=== PATIENT | female | born 1980 | race Caucasian/White ===

== ENCOUNTER 2019-10-29 05:45 | Day surgery (SDC) | payer BC ==
[2019-10-26 09:44] VITALS: BMI 25.0
[2019-10-26 10:36] LABS: BHCG - Serum Negative (NEGATIVE); Pregs Control Background? CLEAR/WHITE (CLR/WHITE); Pregs Control Bar Appear? YES (CONTROL BAR)
[2019-10-26 10:44] LABS: Hemoglobin 13.2 g/dL (12.0-16.0); Mean Corpuscular HGB CONC 32.6 g/dL (32.0-36.0); Mean Corpuscular Hemoglobin 29.7 pg (27.0-31.0); Mean Platelet Volume 8.4 fL (7.4-10.4); Platelet Count 262 thou/uL (130-400); RBC Distribution Width 12.6 % (11.5-14.5); Red Blood Cell (RBC) Count 4.47 mill/uL (4.20-5.40); White Blood Cell (WBC) Count 5.4 thou/uL (4.8-10.8)
[2019-10-29] MEDS ORDERED: Gabapentin 300 MG CAP ONE (06:16)
[2019-10-29] MEDS ORDERED: Famotidine/PF 20 mg/2ml Vial ONE (06:17)
[2019-10-29] MEDS ORDERED: CeleCOXIB 100 MG CAP ONE (06:17)
[2019-10-29] MEDS ORDERED: Bupivacaine PF 0.5% 30 ML VIAL ONE (06:45)
[2019-10-29] MEDS ORDERED: Lidocaine 1% w/Epinephrine 1:100K 20 ML VIAL ONE (06:45)
[2019-10-29] MEDS ORDERED: Fentanyl 100 MCG/2 ML VIAL ONE ×2 (07:00→10:32)
[2019-10-29] MEDS ORDERED: HYDROmorphone 0.5 MG/0.5 ML SYRINGE ONE ×2 (07:01)
[2019-10-29] MEDS ORDERED: Midazolam HCl 2 mg/2 ml Vial ONE (07:24)
[2019-10-29] MEDS ORDERED: Ropivacaine 0.2% 550 ML 750 ML NERVE BLCK SCH (08:00)
[2019-10-29] MEDS ORDERED: Ropivacaine HCl/PF 750 ML in Premix Bag 1 BAG NERVE BLCK SCH (08:15)
[2019-10-29] MEDS ORDERED: Morphine 2 MG/ML SYRINGE SLOW IVP PRN (09:32)
[2019-10-29] MEDS ORDERED: HYDROcodone/Acetaminophen 5/325 mg Tablet PO PRN ×2 (09:32)
[2019-10-29] MEDS ORDERED: Promethazine HCl 25 MG/ML VIAL SLOW IVP PRN (10:07)
[2019-10-29] MEDS ORDERED: Ondansetron HCl/PF 4 MG/2 ML Vial IVP PRN (10:07)
[2019-10-29] MEDS ORDERED: Promethazine HCl 25 MG/ML VIAL IM PRN (10:07)
--- NOTE | 2019-10-29 10:41 | OP ---
DATE OF PROCEDURE: 10/29/2019 PREOPERATIVE DIAGNOSIS: Dysmenorrhea. POSTOPERATIVE DIAGNOSIS: Dysmenorrhea. PROCEDURES PERFORMED: 1. Robotic-assisted total laparoscopic hysterectomy with bilateral salpingectomy. 2. ON-Q pump placement. ELECTRICAL MAINTENANCE MECHANIC: Enid Harry PA-C. COMPLICATIONS: None. ANESTHESIA: GETA. ESTIMATED BLOOD LOSS: Less than 75 mL. OPERATIVE FINDINGS: 1. Normal-appearing vagina and cervix. Uterus sounds to 8 cm. 2. Normal-appearing uterus, tubes, and ovaries. 3. Surgical site hemostatic. PROCEDURE IN DETAIL: The patient was taken back to the OR with IV fluids running. Once she was in the OR, general anesthesia was obtained. The patient was then placed in low dorsal lithotomy position. The vagina and abdomen were then prepped and draped in normal fashion for gynecologic laparoscopy. Surgeons were gowned and gloved. The procedure began with a draining of the bladder. The bladder drained approximately 700 mL of urine. A Ortiz catheter was left in the bladder, attached to a Evette syringe for bladder manipulation during the case. A speculum was then placed in the vagina. The anterior lip of the cervix was grasped with a tenaculum. A MADELYN-Ynvisible manipulator was assembled with a 4-cm cup, and after sounding the uterus and noting to be 8 cm, an 8 cm tip Jesús manipulator was placed into the uterus and vagina in routine fashion. The surgeon's gloves were then changed and attention was turned to the laparoscopic portion of the procedure. Beginning just above the umbilicus, local anesthesia was injected underneath the skin. A 12-mm skin incision was made with a scalpel. A Veress needle was placed through the skin incision and the abdomen was insufflated without difficulty. Once the abdomen was insufflated, the Veress needle was removed and the 12-mm trocar was placed through the distended abdomen through this incision. The laparoscope was then placed through this port with the above findings noted. The patient was then placed in Trendelenburg position. The remaining 3 ports were placed with the right upper quadrant 11-mm port and a left and right lower quadrant 8-mm port. Once all 4 ports were placed, the robotic arms were docked to the patient's bedside and the instruments were placed under direct visualization into the pelvis. Beginning on the patient's left side, the left fallopian tube was grasped, elevated, and directed away from the pelvic sidewall. It was cauterized and transected using a combination of bipolar and monopolar cautery. The fallopian tube segment was then removed and sent for final pathologic review. The utero-ovarian ligament on the patient's left side was cauterized and transected, allowing the ovary to fall away to the left pelvic sidewall. The round ligament on the patient's left side was then cauterized, transected, and divided into anterior and posterior leaves. The anterior and posterior leaves were dissected down towards the level of the uterine artery. The uterine artery was then cauterized and transected. The anterior leaf of the broad ligament was taken down towards the cervix. The cervicovesical fascia was then dissected, creating a bladder flap across the anterior portion of the cervix and the bladder was dissected away from the planned colpotomy site. In similar fashion, attention was turned to the right side of the pelvis, where the right fallopian tube was grasped and elevated away from the pelvic sidewall, cauterized, transected and removed for pathologic review. The ovary on the patient's right side was cauterized and transected at the utero-ovarian ligament, allowing the right ovary to fall away to the pelvic sidewall. The right ureter was easily identified and noted to be coursing away from the planned areas of dissection. The round ligament was identified, cauterized, and transected. It was divided into anterior and posterior leaves and dissected down towards the level of the uterine artery. The anterior leaf was dissected towards the contralateral dissection and the bladder flap was further dissected to completely dissect the bladder away from the planned colpotomy site. The uterine artery on the patient's right side was skeletonized, cauterized, and transected. After the uterine arteries were transected, the posterior aspect of the uterus was inspected. Uterosacral ligaments were cauterized and dissected down towards the planned colpotomy. The colpotomy was completed posteriorly and then dissected circumferentially to completely remove the cervix and uterus from the vagina. The specimen was then retracted into the vagina. The vaginal cuff was irrigated and suctioned dry. Any small areas of bleeding were controlled with Bovie cauterization. The vaginal cuff was reapproximated and closed in a running fashion with Stratafix suture, it was closed in 2 layers. After the vaginal cuff was closed, the bladder was distended with normal saline with bladder integrity noted. The bladder was then drained and attached to a Ortiz catheter bag. The adnexal dissections and vaginal dissections were copiously irrigated and suctioned dry. No areas of bleeding were noted. The pressure was dropped to 4 mmHg with no bleeding noted. The ureters were noted to vermiculate bilaterally and noted to be away from the areas of dissection. An ON-Q catheter tip was placed under direct visualization through the anterior abdominal wall. The catheter was directed down into the pelvis and primed. A sterile dressing was placed over the ON-Q insertion site. All instruments were then removed from the abdomen. The gas was released. The supraumbilical port site was closed at the fascia with Vicryl suture. All 4 skin incisions were closed with Monocryl suture and dressed with Dermabond dressing. The vagina was inspected at the end of the case with no bleeding noted. The patient was then cleaned, dried, extubated, and taken to the recovery room in good condition. There were no complications and the patient tolerated the procedure well. Job ID: [id number]
[2019-10-29] MEDS: Lactated Ringer's 1,000 ML IV SCH ×2 (11:22→13:41)
[2019-10-29] MEDS: Sodium Chloride 0.9% 1,000 ML IV SCH ×3 (11:22→18:05)
[2019-10-29] MEDS: Ketorolac Tromethamine 30 MG/ML VIAL IVP SCH ×2 (12:28→18:05)
[2019-10-29] MEDS ORDERED: Ibuprofen 800 MG TAB PO SCH (14:00)
[2019-10-29] MEDS ORDERED: Dexamethasone 20 MG/5 ML VIAL ONE (14:59)
[2019-10-29] MEDS ORDERED: Ondansetron PF 4 MG/2 ML Vial SLOW IVP PRN (14:59)
[2019-10-29] MEDS ORDERED: Lidocaine 1% PF 5 ML VIAL ONE (14:59)
[2019-10-29] MEDS ORDERED: Rocuronium Bromide 10 MG/ML (10ML VIAL) ONE (14:59)
[2019-10-29] MEDS ORDERED: Glycopyrrolate 0.2 MG/ML 5 ML SYRINGE ONE (14:59)
[2019-10-29] MEDS ORDERED: PHENYLEPHRINE-NS 100 MCG/ML 10 ML SYRINGE ONE (14:59)
[2019-10-29] MEDS ORDERED: PROPOFOL 200 MG/20 ML VIAL ONE (14:59)
[2019-10-29 16:46] VITALS: BP 94/50
[2019-10-29 16:54] VITALS: TEMP 99.4
== END 2019-10-29 20:10 | disposition home or self-care (01) ==
LOC: SDC 05:45 → 3SE 05:46 → SDC 20:10
PROVIDERS: ATTEND Obstetrics & Gynecology
PROC: 0UT94ZZ Resection of Uterus, Percutaneous Endoscopic Approach (ICD-10-PCS; principal; 2019-10-29)
PROC: 0UT74ZZ Resection of Bilateral Fallopian Tubes, Percutaneous Endoscopic Approach (ICD-10-PCS; principal; 2019-10-29)
DX: N84.0 Polyp of corpus uteri (principal); N87.9 Dysplasia of cervix uteri, unspecified; N72 Inflammatory disease of cervix uteri; F41.9 Anxiety disorder, unspecified; F32.9 Major depressive disorder, single episode, unspecified; Z79.899 Other long term (current) drug therapy
CPT/HCPCS: 36415; 84703; 85027; 86850; 86900; 86901; 88307; J0690; J1100; J1170; J1885; J2001; J2250; J2405; J2704; J2795; J3010; S0020; S0028